=== PATIENT | male | born 1985 | race Asian ===

== ENCOUNTER 2022-01-17 18:51 | Emergency (ER) | payer OTHER ==
--- NOTE | 2022-01-17 19:41 | XRAY Report ---
PROCEDURE: Ankle 3 View RT INDICATIONS: Trauma TECHNIQUE: 3 views of the ankle were acquired. COMPARISON: None. FINDINGS: Bones: There is a moderate area displaced oblique fracture of the distal fibular metaphysis extending into the mortise joint. Widening of the medial tibiotalar clear space is seen with lateral patellar subluxation. Suspected small posterior malleolar fracture. Soft tissues: Soft tissue edema is seen surrounding the ankle. IMPRESSION: 1.Moderately displaced oblique fracture of the distal fibular metaphysis. 2.Moderate lateral patellar subluxation relative to the distal tibia. No definite medial malleoli fra cture identified. 3.Suspected small minimally displaced fracture of the posterior malleolus. Reviewed by: Cameron Pa MD on 01/17/2022 7:40 PM PDT Approved by: Cameron Pa MD on 01/17/2022 7:40 PM PDT Station ID: [id number]
[2022-01-17] MEDS: HYDROmorphone 1 MG/ML CARPUJECT IM STA (20:22)
--- NOTE | 2022-01-17 20:23 | ED Physician Documentation ---
History of Present Illness - Stated complaint Stated Complaint: ANKLE PX/SWELLING - Chief complaint Chief Complaint: Trauma Ext - History obtained from History obtained from: Patient, EMS - History of Present Illness Timing: Today Pain level max: 9 Pain level now: 7 - Additonal information Additional information: Patient is a 36-year-old male who presents to the emergency department with a right ankle injury. This occurred while playing baseball tonight, he slid into a base and felt a snap in his ankle. Unable to bear weight. Noted deformity. Worse with movement, better with rest. Review of Systems Constitutional: denies: Fever, Chills Musculoskeletal: denies: Neck pain, Back pain Neurologic: denies: Headache PD PAST MEDICAL HISTORY - Past Medical History Past Medical History: No - Past Surgical History Past Surgical History: No - Present Medications Home Medications: Ambulatory Orders Medication Instructions Recorded Confirmed Oxycodone HCl/Acetaminophen 1 - 2 each PO Q6H PRN #14 tablet 01/17/22 [Percocet 5-325 mg Tablet] - Allergies Allergies/Adverse Reactions: Allergies Allergy/AdvReac Type Severity Reaction Status Date / Time No Known Drug Allergies Allergy Verified 01/17/22 18:56 - Social History Does the pt smoke?: No Smoking Status: Never smoker Does the pt drink ETOH?: No Does the pt have substance abuse?: No - Immunizations Immunizations are current?: Yes - POLST Patient has POLST: No PD ED PE NORMAL - Vitals Vital signs reviewed: Yes - General General: Alert and oriented X 3, No acute distress - HEENT HEENT: Moist mucous membranes - Neck Neck: Supple, no meningeal sign - Derm Derm: Warm and dry - Extremities Extremities: Other (R ankle - swelling, deformity noted. NVI. Brisk cap refill.Diffusely TTP over the R ankle. ) - Neuro Neuro: Alert and oriented X 3 Results - Vitals Vitals: Vital Signs - 24 hr 01/17/22 01/17/22 01/17/22 18:57 20:40 21:15 Temperature 36.9 C Heart Rate 66 79 71 Respiratory 16 16 Rate Blood Pressure 146/75 H 142/76 H 130/80 O2 Saturation 100 99 99 01/17/22 21:35 Temperature Heart Rate Respiratory 16 Rate Blood Pressure O2 Saturation Oxygen O2 Source Room air - Rads (name of study) R ankle xray Radiology: Final report received, EMP read contemporaneously, See rad report R ankle CT Radiology: Final report received, EMP read contemporaneously, See rad report Procedures - Splint (location) R LE Splint applied by: Physician, Other (Ortho RAQUEL Lizama) Type of splint: Fiberglass, Short leg, Posterior, Stirrup Other: Patient tolerated well, No complications, Neurovascular intact, Good alignment, Crutches provided PD MEDICAL DECISION MAKING - ED course Complexity details: reviewed results, re-evaluated patient, considered differential, d/w patient, d/w portrait consultant ED course: 36 year old male with a bimalleolar fracture dislocation of his right ankle. Discussed the case with Dr. Saenz, orthopedics, And he request that we place the patient in a short leg posterior splint with stirrups. A CT scan of the an kle was also requested for operative planning purposes. This was obtained. Pain well-controlled. NVI intact. Patient will follow up in clinic for operative planning. Patient counseled regarding signs and symptoms for which I believe an urgent reevaluation would be needed. Patient with good understanding and agreement to plan. Patient comfortable going home at this time. Departure - Departure Disposition: Home, Self Care Clinical Impression: Bimalleolar fracture of right ankle Qualifiers: Encounter type: initial encounter Fracture type: closed Qualified Code(s): S82.841A - Displaced bimalleolar fracture of right lower leg, initial encounter for closed fracture Subluxation of ankle joint Qualifiers: Encounter type: initial encounter Laterality: right Qualified Code(s): S93.01XA - Subluxation of right ankle joint, initial encounter Condition: Good Instructions: ED Fx Lower Ext Follow-Up: KEVIN MERCEDES MD [Primary Care Provider] - Barrera Saenz MD [Provider Admit Priv/Credential] - [facility] [Provider Group] - Tomorrow Prescriptions: Oxycodone HCl/Acetaminophen [Percocet 5-325 mg Tablet] 1 - 2 each PO Q6H PRN #14 tablet PRN Reason: pain Comments: Your prescriptions were sent to [facility] in [place]. Please follow-up with orthopedics for further care. The CT scan artie was for operative planning. This injury will require an operation. I spoke with Dr. Dany alva. Please call the clinic tomorrow for an appointment. I am prescribing a short course of narcotic pain medication for you. These are potentially dangerous and addictive medications that should be used carefully. These medications may constipate you. Take an yiqb-yzc-livbnpa stool softener (docusate) twice daily with plenty of water while taking these medications. If you go 24 hours without a bowel movement, take ybey-pcj-fiztgzi miralax, per package instructions. Do not drink or drive while taking these medications. If you received narcotic or sedating medications while in the emergency department, do not drive for 24 hours. Store this medication in a safe, secure place and out of reach of children. It is a violation of federal law to give or sell this medication to another person or to use in a manner other than prescribed. The ED will not refill narcotic prescriptions, including prescriptions lost or stolen. To dispose of unwanted medications: 1. [facility] at [address] in [place] has a medication drop box. They accept prescription medications (in pill form) Sunday through Sunday 9:00 a.m. to 5:00 p.m. 2. The [facility] [employer] accepts prescription medications (in pill form only) for disposal year round. Call for more information. 3. Contact the [facility] for the next [facility] sponsored prescription drug collection event. , [phone], or [phone]; Discharge Date/Time: 01/17/22 22:00
[2022-01-17] MEDS: oxyCODONE 5 MG TABLET PO STA (20:58)
[2022-01-17] MEDS: oxyCODONE/ACET 5/325 Prepack 4 PO STA (21:22)
[2022-01-17 21:30] VITALS: BP 130/80
--- NOTE | 2022-01-17 22:22 | CT Report ---
PROCEDURE: LOWER EXTREMITY WO - RT INDICATIONS: fracture, dislocation TECHNIQUE: Noncontrast 3-mm axial sections acquired from the distal tibial shaft to the talar dome, with coronal and sagittal reformats. For radiation dose reduction, the following was used: automated exposure c ontrol, adjustment of mA and/or kV according to patient size. COMPARISON: Prior x-ray of the right ankle 01/17/2022. FINDINGS: Image quality: Excellent. Bones: There is a mildly displaced spiral fracture of the distal fibular shaft with mild lateral and posterior displacement of the distal component. There is associated widening of the tibiotalar synde smosis with lateral subluxation of the tibiotalar joint and disruption of the ankle mortise. A mildly displaced fracture of the posterior malleolus of the distal tibia is present involving the tibiotala r joint posteriorly. Remaining visualized osseous structures appear intact. Soft tissues: There is a small tibiotalar joint effusion. The visualized flexor, extensor, peroneal, and Achilles tendons appear intact. There is periarticular soft tissue swelling and subcutaneous karen nges edema. Impression: 1. Fracture-dislocation of the right ankle involving the lateral and posterior malleoli as described. Reviewed by: Gera Zuniga MD on 01/17/2022 10:21 PM PDT Approved by: Gera Zuniga MD on 01/17/2022 10:21 PM PDT Station ID: [id number]
== END 2022-01-17 22:00 | disposition home or self-care (01) ==
LOC: EDUNIT# → ED 18:51
DX: S82.841A Displaced bimalleolar fracture of right lower leg, initial encounter for closed fracture (principal); X50.1XXA Overexertion from prolonged static or awkward postures, initial encounter; Y93.64 Activity, baseball
CPT/HCPCS: 29515; 73610; 73700; 96372; 99284; A9270; J1170

== ENCOUNTER 2022-03-14 08:00 | Outpatient (CLI) | payer OTHER ==
--- NOTE | 2022-03-14 16:26 | XRAY Report ---
PROCEDURE: Ankle 3 View RT INDICATIONS: ANKLE ORIF TECHNIQUE: 3 views of the ankle were acquired. COMPARISON: None FINDINGS: Bones: Side plate and screw fixation of the distal fibula. Tibiofibular syndesmosis fixation is also seen. No fractures or dislocations. Ankle mortise is normally aligned. No suspicious bony lesions. Disuse osteopenia is noted. Soft tissues: No tibiotalar joint effusion. Achilles tendon appears normal. IMPRESSION: 1. Healing distal fibular fracture status post ORIF. 2. Disuse osteopenia. Reviewed by: Wade Tang on 03/14/2022 4:24 PM PDT Approved by: Wade Tang on 03/14/2022 4:24 PM PDT Station ID: [id number]
== END 2022-03-14 23:59 | disposition home or self-care (01) ==
LOC: DI.WOS 08:00
PROVIDERS: ATTEND Orthopaedic Surgery
DX: S82.841D Displaced bimalleolar fracture of right lower leg, subsequent encounter for closed fracture with routine healing (principal); M85.871 Other specified disorders of bone density and structure, right ankle and foot

== ENCOUNTER 2022-04-11 08:00 | Outpatient (CLI) | payer OTHER ==
--- NOTE | 2022-04-11 09:10 | XRAY Report ---
PROCEDURE: Ankle 3 View RT INDICATIONS: ANKLE FX RIGHT TECHNIQUE: 3 views of the ankle were acquired. COMPARISON: X-ray ankle 03/14/2022 FINDINGS: Bones: ORIF of the distal fibula is stable. Hardware is intact without evidence of hardware fracture or periprosthetic lucency to suggest loosening. Alignment is stable. Fracture lucencies remain visibl e. Ankle mortise is normally aligned. No suspicious bony lesions. Soft tissues: No tibiotalar joint effusion. Achilles tendon appears normal. IMPRESSION: Stable appearance of distal fibular ORIF. Reviewed by: Basilia Rojas MD on 04/11/2022 9:09 AM PDT Approved by: Basilia Rojas MD on 04/11/2022 9:09 AM PDT Station ID: [id number]
== END 2022-04-11 23:59 | disposition home or self-care (01) ==
LOC: DI.WOS 08:00
PROVIDERS: ATTEND Physician Assistant Surgical
DX: S82.831A Other fracture of upper and lower end of right fibula, initial encounter for closed fracture (principal)

== ENCOUNTER 2022-11-06 13:31 | Outpatient (CLI) | payer OTHER ==
--- NOTE | 2022-11-06 21:48 | SLEEP CARE CONSULTATION ---
Information from patient questionnaire entered by Chidi Helms. I have reviewed and concur with the information entered by Chidi Helms. This document represents the service I personally performed and the decisions made by me, Shameka Echols MD, [facility]. History of Present Illness Service Date and Time: 11/06/2022 1331 Reason for Visit: New patient Chief Complaint: reports: Insomnia, Excessive daytime sleepiness Date of Onset: 9-10YRS Usual bedtime: 10PM Time it takes to fall asleep: 1-2HRS Snores at night: Yes Observed to quit breathing while asleep: No Sleeps alone due to snoring: No Number of times waking at night: 0-1 Reasons for waking at night: reports: Other (UNKNOWN) Toss, Turn, or Twitch while sleeping: Yes Recalls having dreams: Yes Usually gets out of bed at: 6AM Feels refreshed in the morning: No Morning headache: No Sleepy or fatigued during the day: No Ever fallen asleep while driving: No Takes day naps: Yes Dreams during day naps: No Prior sleep studies: No Additional HPI information: I had the pleasure of seeing Mr. Pickett today regarding the possibility of him having a sleep disorder. As you know, he is a 37-year-old gentleman who complains of insomnia and excessive daytime sleepiness. The patient tells me that he normally goes to bed around 10 pm, and it takes him approximately 1 2 hours to fall asleep. On weekends, he goes to bed at 1 2 am and has no problem falling asleep. He has been told that he snores loudly and irregularly at night. He has never been observed to stop breathing in his sleep. However, he sleeps alone. He can recall waking up on average 1 time during the night. Most of the time he wakes up because of unknown reason. He has awakened occasionally because of his own snoring, choking, and having to gasp for air. There is a lot of tossing and turning in his sleep. No somniloquy (sleep talking) or somnambulism (sleep walking). Generally, he can recall having dreams. In the morning he usually gets up out of the bed around 6 a.m. (9 am on weekends) not feeling refreshed nor rested. He usually does not have a morning headache. During the day he complains of feeling sleepy and fatigued. His score on [place] Sleepiness Scale is 12 out of 24. He never has fallen asleep while driving nor has had any accident due to sleepiness. He usually takes naps during the day. He denies having impaired concentration during the day. - Parasomnia Symptoms Ever been unable to move upon waking from sleep: No Walks in sleep: No Talks in sleep: No Ever acted out dreams in sleep: Yes Ever felt weak in the knees when startled or emotional: No Bothered by creepy, crawly, restless sensations in legs: Yes Problems with memory or concentration: No Subjective Initial [place] Sleepiness Scale score: 9 (11/06/22) Social History The patient's occupation is a AM. Patient is Single and lives in . Have you smoked in the past 12 months: No Years of smokin Quit date: 2015 Alcohol use: Yes Alcohol amount and frequency: 3 BEERS WEEKENDS ONLY Caffeine use: Yes Caffeine amount and frequency: 2-3 DAILY Family History Family history of sleep disordered breathing: No Allergies and Home Medications Known drug allergies: No Drug allergies reviewed: Yes Home medication list reviewed: Yes Allergy and home medication list: Allergies No Known Drug Allergies Allergy (Verified 11/03/22 09:49) Review of Systems Weight gain over past 5 years: 10 Weight loss over past 5 years: 15 Cardiovascular: denies: high blood pressure, palpitations, chest pain, irregular heart rate or pulse, leg or foot swelling, have to sleep sitting up, other Respiratory: denies: shortness of breath, wheeze, sputum production, chronic cough, other Gastrointestinal: denies: heartburn, difficulty swallowing, nausea, vomitting, diarrhea, abdominal pain, other Urinary: denies: incontinence, frequency, urgency, impotence, other Neurological: denies: headaches, seizure, head trauma, disorientation, speech dysfunction, gait or balance problems, fainting or unconsciousness, other Psychiatric: denies: Attention Deficit Hyperactivity, anxiety, depression, mood disorder, claustrophobia, other Ear/Nose/Throat: denies: nasal congestion, sinus problems, nose bleeds, dry mouth/throat, hoarseness, injury to nose, tonsillectomy, wisdom teeth removed, other Musculoskeletal: denies: joint pain, neck pain, back pain, joint swelling, muscle pain or cramping, mobility problems, other Immunologic: denies: sneezing, rash, itching, allergies to food or environment, other Physical Exam Vital signs obtained and entered by: CHIDI Joseph MA Blood Pressure: 110/64 (LEFT ARM ) Cuff size: regular Heart Rate: 61 O2 Saturation: 98 Height: 5 ft 9 in Weight: 183 lb 12.8 oz Body Mass Index: 27.1 BMI Classification: Overweight Neck circumference: 15.5 Mood/affect: normal HEENT: No craniofacial malformation Nostrils: patent to airflow Turbinates: normal Septum: midline Mouth and throat: narrow oropharynx Soft palate: long Hard palate: normal Uvula: normal Uvula visualization: 25% Mallampati Class III Tongue: normal in size Tonsils: small Chin and jaw: normal size and position Neck: normal w/o lymphadenopathy or thyromegaly Heart: regular rate and rhythm Lungs: clear bilaterally Impression and Plan IMPRESSION: 1. Suspected sleep apnea, as suggested by history of loud and irregular snoring, unrefreshed sleep, and daytime hypersomnolence. Narrow oropharynx and obesity are common predisposing factors for obstructive sleep apnea-hypopnea syndrome. I recommend proceeding to polysomnography to confirm the diagnosis and to assess severity. If he has significant sleep disordered breathing, a manual CPAP titration study will also be performed to find the optimal treatment pressure. I informed the patient of what the sleep studies involve and after some discussion, he agreed to proceed. 2. 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 This causes him to have sleep onset insomnia on weeknights and insufficient sleep. The solution is to maintain a regular wakeup time. This means he has to wake up around 6 am as well on the weekends. Plan: 1. Schedule an in-laboratory polysomnography. 2. Maintain a regular wake up time and spend no more than 8 hours in bed at night. Avoid naps. 3. Return for follow up after the sleep study. Follow up with Sleep Care in: 1-2 months Visit Type: In Office Time Spent with Patient (minutes): 15 Provider Statement: I spent 100% of the Face to Face Visit with the patient with greater than 50% spent counseling the patient and coordination of care.
[2022-11-06 21:49] VITALS: BP 110/64
== END 2022-11-06 13:32 | disposition home or self-care (01) ==
LOC: SC 13:31
PROVIDERS: ATTEND Internal Medicine Pulmonary Disease
DX: R06.83 Snoring (principal); G47.00 Insomnia, unspecified; G47.8 Other sleep disorders; G47.10 Hypersomnia, unspecified; G47.29 Other circadian rhythm sleep disorder
CPT/HCPCS: 99202; 99212

== ENCOUNTER 2022-12-22 20:28 | Outpatient (CLI) | payer OTHER | END 2022-12-22 20:29 | disposition home or self-care (01) | LOC: SC 20:28 | PROVIDERS: ATTEND Internal Medicine Pulmonary Disease | DX: R06.83 Snoring (principal); G47.10 Hypersomnia, unspecified; E66.3 Overweight; Z68.27 Body mass index [BMI] 27.0-27.9, adult | CPT/HCPCS: 95810 ==

== ENCOUNTER 2023-01-01 13:28 | Outpatient (CLI) | payer OTHER ==
--- NOTE | 2023-01-01 15:52 | SLEEP CARE CONSULTATION ---
Information from patient questionnaire entered by Chidi Helms. I have reviewed and concur with the information entered by Chidi Helms. This document represents the service I personally performed and the decisions made by me, Shameka Echols MD, [facility]. History of Present Illness Service Date and Time: 01/01/2023 1328 Initial [place] Sleepiness Scale score: 9 (11/06/22) Current [place] Sleepiness Scale score: 13 (01/01/23) Additional HPI information: IMPRESSION: 1. 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 This causes him to have sleep onset insomnia on weeknights and insufficient sleep. The solution is to maintain a regular wakeup time. This means he has to wake up around 6 am as well on the weekends. Plan: 1. Maintain a regular wake up time and spend no more than 8 hours in bed at night. Avoid naps. 3. Return for follow up on as needed basis. Sleep Study - Results Type of Sleep Study: Polysomnography (COMPLETED 12/22/22) Prior sleep studies: No Allergies and Home Medications Allergy and home medication list: Allergies No Known Drug Allergies Allergy (Verified 01/01/23 08:57) Physical Exam Vital signs obtained and entered by: CHIDI Joseph MA Blood Pressure: 112/70 (LEFT ARM) Cuff size: regular Heart Rate: 45 O2 Saturation: 98 Height: 5 ft 9 in Weight: 177 lb 9.6 oz Body Mass Index: 26.2 BMI Classification: Overweight Impression and Plan IMPRESSION: 1. 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 This causes him to have sleep onset insomnia on weeknights and insufficient sleep. The solution is to maintain a regular wakeup time. This means he has to wake up around 6 am as well on the weekends. Plan: 1. Maintain a regular wake up time and spend no more than 8 hours in bed at night. Avoid naps. 3. Return for follow up on as needed basis. Visit Type: In Office Provider Statement: I spent 100% of the Face to Face Visit with the patient with greater than 50% spent counseling the patient and coordination of care.
[2023-01-01 15:53] VITALS: BP 112/70
== END 2023-01-01 13:29 | disposition home or self-care (01) ==
LOC: SC 13:28
PROVIDERS: ATTEND Internal Medicine Pulmonary Disease
DX: G47.09 Other insomnia (principal); G47.21 Circadian rhythm sleep disorder, delayed sleep phase type
CPT/HCPCS: 99212